=== PATIENT | female | born 2000 | race Caucasian/White ===

== ENCOUNTER → 2025-05-19 08:06 | Outpatient (REF) | payer OTHER, SELFPAY | LOC: PNTC 08:06 | PROVIDERS: ATTENDING PHYSICIAN Obstetrics & Gynecology | DX: Z36.0 Encounter for antenatal screening for chromosomal anomalies (principal); Z36.82 Encounter for antenatal screening for nuchal translucency; O99.211 Obesity complicating pregnancy, first trimester; O24.011 Pre-existing type 1 diabetes mellitus, in pregnancy, first trimester; O99.281 Endocrine, nutritional and metabolic diseases complicating pregnancy, first trimester | CPT/HCPCS: 36415; 76801; 76813 ==